=== PATIENT | male | born 1990 | race African-American/Black ===

== ENCOUNTER 2016-12-03 22:01 | Inpatient (IN) | payer OTHER ==
[~2016-12-03] VITALS: Ht 182.9 cm; Wt 82.0 kg
[2016-12-03] MEDS ORDERED: HYDROmorphone INJ 0.5 MG/0.5 ML SYR IV STA (23:13)
[2016-12-03 23:18] LABS: BASO % 0.1 %; BASO ABS # 0.01 K/uL (0-0.2); COMPLETE YES; EOS % 2.4 %; HEMATOCRIT 41.8 % (42-52); IG% 0.3 %; LYMPH % 46.6 %; LYMPH ABS # 3.69 K/uL (1.2-3.4); MEAN CELL VOLUME 89.3 fL (80-100); MEAN CORPUSCULAR HEMOGLOBIN 30.6 pg (25-34); MEAN CORPUSCULAR HGB CONC 34.2 g/dl (32-36); MEAN PLATELET VOLUME 9.7 fL (7.4-10.4); MONO % 9.8 %; NEUT % 40.8 %; PLATELET COUNT 302 K/uL (130-400); RED BLOOD COUNT 4.68 M/uL (4.7-6.1); WHITE BLOOD COUNT 7.92 K/uL (4.8-10.8)
[2016-12-03 23:25] LABS: BUN/CREATININE RATIO 13.1 (10-20); CREATININE 0.99 mg/dl (0.60-1.40); POTASSIUM 4.3 mmol/L (3.5-5.1)
--- NOTE | 2016-12-03 23:28 | EMERGENCY ROOM VISIT NOTE ---
History First contact with patient: 22:15 Chief Complaint: LEG PAIN,LEG INJURY Stated Complaint: RT. LEG INJURY W/ DEFORMITY History of Present Illness The patient is a 26 year old male who presents to the Emergency Room via ALS with complaints of a right leg injury. The patient was playing football and slid onto his left leg, landing onto his bent right leg. The patient reports pain in the lower leg. He denies numbness or weakness. He is able to wiggle his toes. The patient denies any previous injuries to this leg. He denies any other injuries. She last ate around 7:00 PM. Review of Systems A complete 10 point review of systems was reviewed with the patient with pertinent positives and negatives as per history of present illness. All else were negative. Past Medical/Surgical History Medical Problems: (1) Tibia/fibula fracture Social History Smoking Status: Current Every Day Smoker Current/Historical Medications No Active Prescriptions or Reported Meds Allergies Coded Allergies: Mushroom (Verified Allergy, Unknown, ANAPHYLAXIS, 12/04/16) Physical Exam Vital Signs Date Time Temp Pulse Resp B/P (MAP) Pulse Ox O2 Delivery O2 Flow Rate FiO2 12/03/16 23:25 95 15 140/91 97 Room Air 12/03/16 22:15 37.0 90 28 145/102 99 Room Air Physical Exam VITALS: Vitals are noted on the nurse's note and reviewed by myself. Vital signs stable. GENERAL: This is a 26 year old male, in no acute distress but appears to be in pain, well-developed well-nourished. SKIN: There is skin tenting at the distal right lower leg. There are no lacerations. HEART: Regular rate and rhythm without murmurs gallops or rubs. LUNGS: Clear to auscultation bilaterally without wheezes, rales or rhonchi. MUSCULOSKELETAL: Skin tenting of the distal right lower leg. The right foot is pointed outward. There is obvious deformity and tenderness at the distal right lower leg. Dorsalis pedis pulse is 2+. Patient is able to wiggle toes. No tenderness of the knee or femur. NEURO: Patient was alert and oriented to person place and time. Normal sensation to light and sharp touch over the right foot. Medical Decision & Procedures ER Provider Diagnostic Interpretation: RIGHT TIBIA AND FIBULA 2 VIEWS CLINICAL HISTORY: Right leg injury. FINDINGS: AP and crosstable lateral portable views of the right tibia and fibula are obtained. No prior studies are available for comparison at the time of dictation. The skeletal structures are well mineralized. There is a comminuted spiral fracture through the distal shaft of the tibia. There is lateral distraction of the distal fragment by at least one shaft length, with overriding of the largest fragments by at least 1.5 cm. There is apex medial angulation. There is a similar-appearing comminuted, distracted, and overriding fracture through the midshaft of the fibula. Overlying soft tissue edema is noted. No subcutaneous gas is seen. The knee and ankle joints are grossly maintained. IMPRESSION: Comminuted, distracted, overriding, and angulated fractures of the right tibial and fibular shafts as above. Laboratory Results 12/03/16 20:46 Red Blood Count 4.68, Mean Corpuscular Volume 89.3, Mean Corpuscular Hemoglobin 30.6, Mean Corpuscular Hemoglobin Concent 34.2, Mean Platelet Volume 9.7, Neutrophils (%) (Auto) 40.8, Lymphocytes (%) (Auto) 46.6, Monocytes (%) (Auto) 9.8, Eosinophils (%) (Auto) 2.4, Basophils (%) (Auto) 0.1, Neutrophils # (Auto) 3.23, Lymphocytes # (Auto) 3.69, Monocytes # (Auto) 0.78, Eosinophils # (Auto) 0.19, Basophils # (Auto) 0.01 12/03/16 20:46 Test 12/03/16 20:46 White Blood Count 7.92 K/uL (4.8-10.8) Red Blood Count 4.68 M/uL (4.7-6.1) Hemoglobin 14.3 g/dL (14.0-18.0) Hematocrit 41.8 % (42-52) Mean Corpuscular Volume 89.3 fL (80-100) Mean Corpuscular Hemoglobin 30.6 pg (25-34) Mean Corpuscular Hemoglobin Concent 34.2 g/dl (32-36) Platelet Count 302 K/uL (130-400) Mean Platelet Volume 9.7 fL (7.4-10.4) Neutrophils (%) (Auto) 40.8 % Lymphocytes (%) (Auto) 46.6 % Monocytes (%) (Auto) 9.8 % Eosinophils (%) (Auto) 2.4 % Basophils (%) (Auto) 0.1 % Neutrophils # (Auto) 3.23 K/uL (1.4-6.5) Lymphocytes # (Auto) 3.69 K/uL (1.2-3.4) Monocytes # (Auto) 0.78 K/uL (0.11-0.59) Eosinophils # (Auto) 0.19 K/uL (0-0.5) Basophils # (Auto) 0.01 K/uL (0-0.2) RDW Standard Deviation 42.6 fL (36.4-46.3) RDW Coefficient of Variation 13.3 % (11.5-14.5) Immature Granulocyte % (Auto) 0.3 % Immature Granulocyte # (Auto) 0.02 K/uL (0.00-0.02) Anion Gap 11.0 mmol/L (3-11) Est Creatinine Clear Calc Drug Dose 124.1 ml/min Estimated GFR () 121.3 Estimated GFR (Non- 104.7 BUN/Creatinine Ratio 13.1 (10-20) Calcium Level 9.0 mg/dl (8.5-10.1) Medications Administered Medications (Trade) Dose Ordered Sig/Ortiz Route Start Time Stop Time Status Last Admin Dose Admin Hydromorphone HCl (Dilaudid Inj) 1 mg NOW STAT IV 12/03/16 23:36 12/03/16 23:37 DC 12/03/16 23:45 1 MG Dextrose/Sodium Chloride 1,000 ml @ 100 mls/hr Q10H IV 12/03/16 23:57 01/02/17 23:56 12/04/16 01:22 100 MLS/HR Hydromorphone HCl (Dilaudid Inj) 1 mg Q2HWA PRN IV 12/04/16 00:00 12/18/16 00:00 12/04/16 04:36 1 MG Medical Decision Differential diagnosis includes fracture, open fracture, neurovascular compromise, dislocation, among others. The patient is a 26-year-old male who presents today complaining of a right leg injury. There is obvious deformity and skin tenting on exam. X-ray shows significant angulation, distraction and overlapping. Dr. Beintes was consulted and arrived at bedside. He did slightly reduce the fracture and will take the patient to the OR in the morning. Please see his notes for further course and patient disposition. Patient was given 1 mg Dilaudid IV in the ER. He had received 20 mg morphine prior to arrival. Medication reconciliation: I attest that I have personally reviewed the patient 's current medication list. Blood Pressure Screening: Patient was found to have a slightly elevated blood pressure due to circumstances. I do not believe that the patient requires hypertension monitoring. Impression Primary Impression: Fracture of shaft of tibia and fibula Departure Information Prescriptions No Active Prescriptions or Reported Meds Referrals No Doctor, Assigned (PCP) Patient Instructions My [facility] Problem Qualifiers Primary Impression: Fracture of shaft of tibia and fibula Encounter type: initial encounter Fracture type: closed Laterality: right Qualified Codes: S82.201A - Unspecified fracture of shaft of right tibia, initial encounter for closed fracture; S82.401A - Unspecified fracture of shaft of right fibula, initial encounter for closed fracture
[2016-12-03] MEDS ORDERED: HYDROmorphone INJ 1 MG/ML SYR IV STA (23:36)
--- NOTE | 2016-12-03 23:57 | History and Physical ---
History & Physical Date Dec 03, 2016. Chief Complaint Right Tib/Fib fracture History of Present Illness The patient is a 26 year old male with complaints of Past Medical/Surgical History none Additional History Hepatic Disease: No Endocrine Disorder: No Kidney Disease: No Hypertension: No Heart Disease: No Bleeding Tendencies: No Infectious Diseases: No Allergies Coded Allergies: No Known Allergies (Unverified , 12/03/16) Home Medications No Active Prescriptions or Reported Meds Physical Examination Skin: warm/dry, no rash Eyes: normal inspection, EOMI, sclerae normal ENT: normal ENT inspection, pharynx normal Head: normocephalic, atraumatic Neck: supple, no adenopathy, trachea midline Respiratory/Chest: lungs clear, normal breath sounds, no respiratory distress Cardiovascular: regular rate, rhythm, no edema, no murmur Abdomen / GI: normal bowel sounds, non tender Back: normal inspection Extremities: normal inspection, normal range of motion Neurologic/Psych: no motor/sensory deficits, alert, normal reflexes, oriented x 3 Diagnosis Right Tib/Fib fracture Plan of Treatment Intramedullary nail fixation Right Tibia
[2016-12-04] VITALS (10 sets, daily range): BP systolic 124–167; BP diastolic 75–88; PULSE 55–92; TEMP 36.8–37.1; O2SAT 96–98; Ht 182.9 cm; Wt 82.0 kg
--- NOTE | 2016-12-04 00:46 | DIAGNOSTIC IMAGING REPORT ---
TWO VIEW CHEST CLINICAL HISTORY: Preoperative examination. Right tibial and fibular fractures. FINDINGS: AP semierect and lateral chest radiographs are obtained. No prior studies are available for comparison at the time of dictation. The AP view is degraded by apical lordotic positioning. The cardiomediastinal silhouette is unremarkable. The lungs and pleural spaces are clear. There is no pneumothorax. The bony thorax appears intact. IMPRESSION: No active disease in the chest. Electronically signed by: Robbie Wilks M.D. 12/04/2016 12:44 AM Dictated Date/Time: 12/04/2016 12:43 AM
[2016-12-04] MEDS: D5W AND 1/2NSS 1,000 ML IV SCH ×2 (01:22→10:12)
[2016-12-04] MEDS: HYDROmorphone INJ 1 MG/ML SYR IV PRN ×7 (01:22→23:42)
[2016-12-04] MEDS ORDERED: CEFAZOLIN 2000 MG/60 ML D5W 60 ML IV SCH (06:00)
[2016-12-04] MEDS ORDERED: LIDOCAINE HCL 2% 2 ML VIAL (20MG/ML) ONE (10:38)
[2016-12-04] MEDS ORDERED: FENTANYL CITRATE INJ 50 MCG/1 ML 2 ML VIAL ONE ×2 (10:38→12:23)
[2016-12-04] MEDS ORDERED: DEXAMETHASONE SOD INJ 4 MG/ML VIAL ONE (10:38)
[2016-12-04] MEDS ORDERED: PROPOFOL IV EMULSION 10 MG/ML 20 ML VIAL IV ONE (10:38)
[2016-12-04] MEDS ORDERED: ONDANSETRON INJ 2 MG/ML 2 ML VIAL ONE (10:38)
[2016-12-04] MEDS ORDERED: MIDAZOLAM HCL 1 MG/ML 2ML VIAL ONE (10:39)
[2016-12-04] MEDS ORDERED: HYDROmorphone INJ 2 MG/ML SYR/VIAL IV PRN (11:00)
[2016-12-04] MEDS ORDERED: ONDANSETRON INJ 2 MG/ML 2 ML VIAL IV PRN ×3 (11:00→13:15)
[2016-12-04] MEDS ORDERED: LABETALOL HCL IV 5 MG/ML 20ML IV PRN (11:00)
[2016-12-04] MEDS ORDERED: PROMETHAZINE HCL INJ 6.25 MG in SODIUM CHLORIDE 0.9% 50ML 50 ML IV PRN (11:00)
[2016-12-04] MEDS ORDERED: ATROPINE SULFATE 0.1 MG/ML 5ML SYR IV PRN (11:00)
[2016-12-04] MEDS ORDERED: KETOROLAC TROMETHAMINE 30 MG/ML VIAL IV. PRN (11:00)
[2016-12-04] MEDS ORDERED: BUPIVACAINE/EPINEPHRINE 0.5% MPF 1:200,000 10 ML VIAL ONE (11:02)
--- NOTE | 2016-12-04 11:07 | History & Physical Bridge Note ---
H&P Re-Evaluation Bridge Note: I have examined the patient, reviewed the History & Physical and in the interval since the performance of the History & Physical I have noted the following changes of clinical significance: No changes noted
[2016-12-04] MEDS ORDERED: GLYCOPYRROLATE INJ 0.2 MG/ML VIAL ONE (13:12)
[2016-12-04] MEDS ORDERED: NEOSTIGMINE METHYLSULFATE 5 MG/5 ML SYR ONE (13:12)
--- NOTE | 2016-12-04 13:13 | [facility] Post Operative Brief Note ---
Immediate Operative Summary Operative Date Dec 04, 2016. Pre-Operative Diagnosis Right Tibia/Fibula Fracture Post-Operative Diagnosis Same as preoperative diagnosis Procedure(s) Performed Intramedullary Nail Fixation Right Tibia Surgeon Dr. Dale [facility] Surgeon(s) Clem Bocanegra PA-C Estimated Blood Loss 20 mL Findings as above Specimens No pathology specimens per surgeon Complication(s) None Disposition Recovery Room / PACU
[2016-12-04] MEDS ORDERED: SOD PHOSPHATE/SOD BIPHOSPHATE ENEMA 132 ML BTL PR PRN (13:15)
[2016-12-04] MEDS ORDERED: MAGNESIUM HYDROXIDE SUSP 30 ML UDC PO PRN (13:15)
[2016-12-04] MEDS ORDERED: BISACODYL 10 MG SUPP PR PRN (13:15)
[2016-12-04] MEDS ORDERED: METOCLOPRAMIDE HCL INJ 5 MG/ML 2 ML VIAL IV PRN (13:15)
[2016-12-04] MEDS ORDERED: KETOROLAC TROMETHAMINE 30 MG/ML VIAL ONE (13:19)
[2016-12-04] MEDS ORDERED: HYDROmorphone INJ 2 MG/ML SYR/VIAL ONE (13:19)
[2016-12-04] MEDS ORDERED: ASPEC325 PO (13:21)
[2016-12-04] MEDS ORDERED: ULT50X PO (13:21)
--- NOTE | 2016-12-04 13:25 | Discharge Instructions ---
Discharge Instructions Date of Service Dec 04, 2016. Admission Reason for Admission: Tibia/Fibula Fracture Discharge Discharge Diagnosis / Problem: Right Tibia Fracture Discharge Goals Goal(s): Decrease discomfort, Improve function Activity Recommendations Activity Limitations: as noted below Weightbearing Status: Right weightbearing (as tolerated) . Instructions / Follow-Up Instructions / Follow-Up May shower 5 days from the day of surgery. Let soapy water run over incisions, pat it dry and cover with a large band-aid Keep leg elevated as much as possible Follow-up with [facility] in about [address] Benites with any questions or concerns [phone] Current Hospital Diet Patient's current hospital diet: Regular Diet Discharge Diet Recommended Diet: Regular Diet Procedures Procedures Performed: Intramedullary Nail Fixation Right Tibia Pending Studies Studies pending at discharge: no Medical Emergencies . Who to Call and When: Medical Emergencies: If at any time you feel your situation is an emergency, please call 911 immediately. . Non-Emergent Contact Non-Emergency issues call your: Surgeon Call Non-Emergent contact if: wound has increased drainage, wound has increased redness . "Provider Documentation" section prepared by Dale Benites. . VTE Core Measure Inpt VTE Proph given/why not?: Other Anticoagulation (Aspirin 325mg daily for 6 weeks)
--- NOTE | 2016-12-04 13:39 | Anesthesiology Progress Note ---
Anesthesia Post Op Note Date & Time Dec 04, 2016 at 13:39 Vital Signs Pain Intensity: 0 Vital Signs Past 12 Hours Date Time Temp Pulse Resp B/P (MAP) Pulse Ox O2 Delivery O2 Flow Rate FiO2 12/04/16 13:32 63 19 94 12/04/16 13:32 64 19 12/04/16 13:31 132/87 12/04/16 13:27 65 21 12/04/16 13:27 65 21 95 12/04/16 13:26 62 21 12/04/16 13:26 62 21 136/91 97 12/04/16 13:21 85 18 100 12/04/16 13:21 85 18 12/04/16 13:16 71 18 136/90 100 12/04/16 13:16 74 18 12/04/16 13:15 61 19 12/04/16 13:15 61 19 100 12/04/16 13:11 121/85 12/04/16 13:10 66 18 99 12/04/16 13:10 66 18 12/04/16 13:06 126/71 12/04/16 13:05 82 21 12/04/16 13:05 82 21 99 12/04/16 13:05 36.3 70 19 126/71 100 Mask 10 12/04/16 07:15 Room Air 12/04/16 07:01 36.9 91 17 131/76 (94) 97 Room Air Notes Mental Status: alert / awake / arousable, participated in evaluation Pt Amnestic to Procedure: Yes Nausea / Vomiting: adequately controlled Pain: adequately controlled Airway Patency, RR, SpO2: stable & adequate BP & HR: stable & adequate Hydration State: stable & adequate Anesthetic Complications: no major complications apparent
[2016-12-04] MEDS: D5W AND 1/2NSS + 20MEQ KCL 1,000 ML IV SCH ×2 (14:10→23:41)
[2016-12-04] MEDS: ACETAMINOPHEN IV 1,000 MG in EMPTY BAG 0 ML IV SCH ×2 (14:10→22:00)
[2016-12-04] MEDS: CEFAZOLIN IV 2,000 MG in DEXTROSE 5% 50ML 50 ML IV SCH (17:44)
[2016-12-04] MEDS: TRAMADOL HCL 50 MG TAB PO PRN (17:49)
[2016-12-04] MEDS: KETOROLAC TROMETHAMINE 30 MG/ML VIAL IV. SCH (19:24)
[2016-12-04] MEDS: DOCUSATE SODIUM 100 MG CAP PO SCH (20:51)
[2016-12-04] MEDS ORDERED: SENNA 8.6 MG TAB PO SCH (21:00)
[2016-12-05] MEDS: CEFAZOLIN IV 2,000 MG in DEXTROSE 5% 50ML 50 ML IV SCH (01:33)
[2016-12-05] MEDS: KETOROLAC TROMETHAMINE 30 MG/ML VIAL IV. SCH ×2 (01:33→07:36)
[2016-12-05 03:11] VITALS: BP 131/77; PULSE 70; TEMP 36.7; O2SAT 99
[2016-12-05] MEDS: ACETAMINOPHEN IV 1,000 MG in EMPTY BAG 0 ML IV SCH (05:50)
[2016-12-05] MEDS: HYDROmorphone INJ 1 MG/ML SYR IV PRN ×3 (07:10→12:05)
--- NOTE | 2016-12-05 07:21 | Orthopedic Progress Note ---
Orthopedic Progress Note Date of Service Dec 05, 2016. Subjective Post OP Day: 1 Objective calves soft nontender, N/V intact, capillary refill less than 2 sec. Date Time Temp Pulse Resp B/P (MAP) Pulse Ox O2 Delivery O2 Flow Rate FiO2 12/05/16 03:11 36.7 70 16 131/77 (95) 99 Room Air 12/04/16 23:40 Room Air 12/04/16 22:59 36.9 55 16 129/75 (93) 97 Room Air 12/04/16 19:10 37.1 73 18 147/87 (107) 98 Room Air 12/04/16 17:45 36.8 65 16 167/84 (111) 98 Room Air 12/04/16 17:00 36.9 73 16 132/80 (97) 98 Room Air 12/04/16 15:30 Room Air 12/04/16 15:00 37.1 92 14 124/86 (99) 96 Room Air 12/04/16 14:31 37.0 80 19 148/88 (108) 98 Room Air 12/04/16 14:28 98 Room Air 12/04/16 14:00 37.0 71 16 142/82 (102) 97 Room Air 12/04/16 13:49 75 19 12/04/16 13:49 76 19 94 12/04/16 13:46 135/84 12/04/16 13:44 64 19 12/04/16 13:44 67 19 95 12/04/16 13:43 65 20 12/04/16 13:43 65 20 95 12/04/16 13:41 134/96 12/04/16 13:38 63 20 95 12/04/16 13:38 64 20 12/04/16 13:36 140/83 12/04/16 13:33 67 18 12/04/16 13:33 66 18 93 12/04/16 13:32 63 19 94 12/04/16 13:32 64 19 12/04/16 13:31 132/87 12/04/16 13:27 65 21 12/04/16 13:27 65 21 95 12/04/16 13:26 62 21 12/04/16 13:26 62 21 136/91 97 12/04/16 13:21 85 18 100 12/04/16 13:21 85 18 12/04/16 13:16 71 18 136/90 100 12/04/16 13:16 74 18 12/04/16 13:15 61 19 12/04/16 13:15 61 19 100 12/04/16 13:11 121/85 12/04/16 13:10 66 18 99 12/04/16 13:10 66 18 12/04/16 13:06 126/71 12/04/16 13:05 82 21 12/04/16 13:05 82 21 99 12/04/16 13:05 36.3 70 19 126/71 100 Mask 10 Laboratory Results 24 Hours: Test 12/05/16 06:54 Assessment & Plan Assessment: s/p IM Nail R tibia Plan: Aspirin 325 daily for 6 weeks WBAT Therapy for crutch training d/c home today on tramadol
[2016-12-05 07:29] LABS: HEMATOCRIT 35.1 % (42-52); MEAN CELL VOLUME 91.4 fL (80-100); MEAN CORPUSCULAR HEMOGLOBIN 30.2 pg (25-34); MEAN PLATELET VOLUME 9.4 fL (7.4-10.4); PLATELET COUNT 234 K/uL (130-400); RED BLOOD COUNT 3.84 M/uL (4.7-6.1); WHITE BLOOD COUNT 9.93 K/uL (4.8-10.8)
[2016-12-05 07:47] VITALS: BP 133/85; PULSE 60; TEMP 36.9; O2SAT 100
[2016-12-05 08:09] LABS: BUN/CREATININE RATIO 8.1 (10-20); CALCIUM 8.4 mg/dl (8.5-10.1); CREATININE 0.89 mg/dl (0.60-1.40); POTASSIUM 3.9 mmol/L (3.5-5.1)
--- NOTE | 2016-12-05 08:47 | DIAGNOSTIC IMAGING REPORT ---
INTRAOPERATIVE RADIOGRAPHS CLINICAL HISTORY: Open reduction and internal fixation of the right tibia. Fluoroscopy time: 100 seconds. FINDINGS: 4 spot fluoroscopic views of the right tibia and fibula are correlated with radiographs dated 12/03/2016. An intramedullary nail has been placed in the right tibia transfixing a spiral fracture of the distal shaft. There has been orthodox of near-anatomic alignment. 2 cortical lag screws transfix the proximal end of the nail and 2 cortical lag screw transfix the distal end of the nail. The orthopedic hardware appears intact. There is also improved alignment of a mid fibular fracture. IMPRESSION: Intraoperative images from open reduction and internal fixation of the right tibia as above. Electronically signed by: Robbie Wikls M.D. 12/04/2016 12:51 PM Dictated Date/Time: 12/04/2016 12:49 PM
--- NOTE | 2016-12-05 08:47 | DIAGNOSTIC IMAGING REPORT ---
INTRAOPERATIVE RADIOGRAPHS CLINICAL HISTORY: Open reduction and internal fixation of the right tibia. Fluoroscopy time: 100 seconds. FINDINGS: 4 spot fluoroscopic views of the right tibia and fibula are correlated with radiographs dated 12/03/2016. An intramedullary nail has been placed in the right tibia transfixing a spiral fracture of the distal shaft. There has been yarsanism of near-anatomic alignment. 2 cortical lag screws transfix the proximal end of the nail and 2 cortical lag screw transfix the distal end of the nail. The orthopedic hardware appears intact. There is also improved alignment of a mid fibular fracture. IMPRESSION: Intraoperative images from open reduction and internal fixation of the right tibia as above. Electronically signed by: Robbie Wilks M.D. 12/04/2016 12:51 PM Dictated Date/Time: 12/04/2016 12:49 PM
[2016-12-05] MEDS: DOCUSATE SODIUM 100 MG CAP PO SCH (08:50)
[2016-12-05] MEDS: TRAMADOL HCL 50 MG TAB PO PRN (08:52)
[2016-12-05] MEDS ORDERED: ASPIRIN 325 MG ECTAB PO SCH (09:00)
[2016-12-05] MEDS ORDERED: MULTIVITAMIN TAB PO SCH (09:00)
[2016-12-05] MEDS: D5W AND 1/2NSS + 20MEQ KCL 1,000 ML IV SCH (10:00)
[2016-12-05 10:07] VITALS: BP 133/85; PULSE 60; TEMP 36.9; O2SAT 100
--- NOTE | 2016-12-06 14:47 | OPERATIVE REPORT ---
PREOPERATIVE DIAGNOSIS: Right tib-fib fracture. POSTOPERATIVE DIAGNOSIS: Same. PROCEDURE: Intramedullary nail fixation of the right tibial shaft. SURGEON: Dr. Dale Benites. POWER WHEELCHAIR MECHANIC: Clem Bocanegra PA-C, whose assistance was necessary for helping hold reduction and facilitate passing of instrumentation. ANESTHESIA: General. COMPLICATIONS: None. CONDITION: Stable to PACU. IMPLANTS USED: I used a [employer] titanium cannulated tibial nail. It was an 11 x 390 mm nail with 2 proximal locking screws and 2 distal locking screws in the static holes. A 0 mm endcap was placed on the proximal aspect. INDICATIONS: Enrique is a pleasant 26-year-old male who fell awkwardly playing football yesterday. He sustained a distal third diaphyseal fracture of the right tibia and fibula. He was seen in the emergency room and admitted to the orthopedic service. He elected to undergo intramedullary nail fixation. On December 04, 2016, he was brought down from the hospital room to the preoperative holding area where the operative extremity was identified and signed. He was given a preoperative antibiotic and taken back to the operating room and laid on the table in the supine position and put under general anesthesia. The right leg was then prepped and draped in sterile fashion. Time-out was done. The patient and the operative extremity were identified. A tourniquet was inflated. An Esmarch was then used around the fracture site to help hold reduction. An incision was made just medial to the patellar tendon. Dissection was taken down through the fascia and a medial arthrotomy was used to the patellar tendon. No fat pad was excised. A guidepin was placed just medial to the lateral tubercle of the tibial plateau. It was also placed just anterior to the articular surface. Appropriate placement was checked on orthogonal fluoroscopic images. A 3.2 mm guidepin was then placed down the tibial shaft. A 12 mm opening reamer was then used. A balltip guidewire was then passed down the tibial shaft. Appropriate placement and fracture reduction was checked under fluoroscopy. Sequential reaming up to a size 12.5 mm reamer was done. An 11 x 390 mm tibial nail was then passed. Once I was happy with the overall alignment and the fracture reduction 2 proximal locking screws were placed in the static holes. Perfect tuscarora technique was then used to place 2 distal locking screws in a medial collateral direction. Final x-rays showed near anatomic alignment of the fracture. The wounds were then irrigated. The arthrotomy was closed with #0 Vicryl, skin was closed with 2-0 Vicryl and baljeet. He was then placed in soft dressings, extubated and taken the postanesthesia care unit in stable condition. He tolerated the procedure well.
--- NOTE | 2016-12-22 17:27 | DISCHARGE SUMMARY ---
DISCHARGE DIAGNOSIS: Right tibial shaft fracture. PROCEDURE: Intramedullary nail fixation of the right tibia on 12/04/[address] Dale Benites. DISCHARGE INSTRUCTIONS: 1. Aspirin 325 mg daily for 6 weeks. 2. Tramadol 50 mg every 6 hours as needed for pain. 3. Follow up with an orthopedist in [place], [place] when he returns home. 4. Abilio to be removed in 2 weeks. 5. Call the office of Dr. Benites with any questions or concerns. HOSPITAL COURSE: Enrique is a pleasant 26-year-old male who fractured his left tibia while playing football. He came to the Emergency Room and orthopedics was consulted. He was placed in a splint and admitted to the orthopedic service. He and his family elected to undergo intramedullary nail fixation the following day. On 12/04/2016 he was brought down from his hospital room to the preoperative holding area. The operative extremity was identified and signed. He was given a preoperative antibiotic and taken back to the operating room, laid on the table in supine position and given general anesthesia. He then underwent intramedullary nail fixation of his right tibial shaft without complications. Postoperatively, he was put on aspirin and discharged to general orthopedic floor. His hospital course was uneventful. On postop day #1, his H&H was stable at 11.6 and 35.1. He was doing well and his pain was controlled. His parents were present and were willing to drive him back to his home in [place], [place]. He was subsequently discharged to home with the above instructions.
== END 2016-12-05 13:05 | disposition home or self-care (01) | DRG 494 ==
LOC: C.EDB 22:03 → C.MSN 12-04 00:03 → ENRESERV 12-04 00:15
PROVIDERS: ADMIT Orthopaedic Surgery; ATTEND Orthopaedic Surgery
PROC: 0QHG06Z Insertion of Intramedullary Internal Fixation Device into Right Tibia, Open Approach (ICD-10-PCS; principal; 2016-12-04 12:30)
DX: S82.201A Unspecified fracture of shaft of right tibia, initial encounter for closed fracture (principal); S82.401A Unspecified fracture of shaft of right fibula, initial encounter for closed fracture; W18.39XA Other fall on same level, initial encounter; F17.200 Nicotine dependence, unspecified, uncomplicated